=== PATIENT | male | born 1985 ===

== ENCOUNTER 2021-09-04 21:56 | Emergency (ER) | payer SELFPAY ==
[2021-09-04 22:35] VITALS: BP 109/66; PULSE 92; RESP 16; TEMP 98.3
== END 2021-09-05 01:24 | disposition left against medical advice (07) ==
LOC: EC 21:56
DX: Z53.21 Procedure and treatment not carried out due to patient leaving prior to being seen by health care provider (principal)
CPT/HCPCS: 93005